=== PATIENT | male | born 1965 | race Caucasian/White ===

== ENCOUNTER 2020-01-09 06:48 | Inpatient (IN) | payer MEDICAID ==
[2020-01-03 12:20] LABS: BASOPHILS % (AUTO) 0.6 % (0-1); EOSINOPHILS # (AUTO) 0.2 X10'3 (0-0.9); EOSINOPHILS % (AUTO) 3.3 % (0-6); LYMPHOCYTES # (AUTO) 1.5 X10'3 (1.1-4.8); LYMPHOCYTES % (AUTO) 27.3 % (21-51); MEAN CORPUSCULAR HGB CONC 33.5 g/dL (33.0-36.5); MEAN CORPUSCULAR VOLUME 95.6 FL (78-98); MEAN PLATELET VOLUME 8.1 FL (7.4-10.4); MONOCYTES # (AUTO) 0.9 X10'3 (0-0.9); MONOCYTES % (AUTO) 15.4 % (2-12); NEUTROPHILS % (AUTO) 53.4 % (42-75); PRE OP HEMATOCRIT 51.7 % (42.0-52.0); PRE OP HEMOGLOBIN 17.3 g/dL (14.0-17.9); PRE OP PLATELET COUNT 158 X10'3 (140-440); RED CELL DISTRIBUTION WIDTH 14.5 % (11.5-14.5)
[2020-01-03 12:41] LABS: ALBUMIN 4.1 G/DL (3.4-5.0); ALBUMIN/GLOBULIN RATIO 1.4 (1.1-1.5); ALKALINE PHOSPHATASE 68 IU/L (46-116); BLOOD UREA NITROGEN 24 MG/DL (7-18); BUN/CREATININE RATIO 14.7 (5.4-32.0); CALCIUM 10.8 MG/DL (8.5-10.1); CHLORIDE 105 MMOL/L (99-107); CREATININE 1.63 MG/DL (0.60-1.10); PRE OP ALT 46 U/L (30-65); PRE OP ANION GAP 7 (8-16); PRE OP AST 35 U/L (10-37); PRE OP BILIRUB, TOTAL 0.5 MG/DL (0.0-1.0); PRE OP GLUCOSE 109 MG/DL (70-104); PRE OP POTASSIUM 3.7 MMOL/L (3.4-5.1); PRE OP SODIUM 142 MMOL/L (135-145); TOTAL CARBON DIOXIDE 29.6 MMOL/L (24-32); TOTAL PROTEIN 7.1 G/DL (6.4-8.2); eGFR 44 ML/MIN
[2020-01-03 13:18] LABS: TOTAL CELLS COUNTED 100
[2020-01-03 13:19] LABS: PLATELET ESTIMATE NORMAL
[~2020-01-09] VITALS: Ht 172.7 cm; Wt 115.8 kg
[2020-01-09] VITALS (27 sets, daily range): BP systolic 111–172; BP diastolic 68–119
[~2020-01-09 06:48] MED LIST: ADAL1PEN SQ; BUPR8TAB4 SL; CARV6.253 PO; CYCL5TAB PO; DOCUMENT DATE & TIME OF BETA-BLOCKER PO ONE; FENO134C PO; FLO0.4C PO; GABA-530 PO; LOSA1TAB39 PO; SIMV10TA98 PO; TEST200V10 IM; TRIA15CR61 TOP; ceFAZolin 2gm in dextrose, iso 50 ML IV ONE; famotidine 20mg tablet PO ONE; ringers solution, lacted 1,000 ML IV SCH; tranexamic acid inj. 1,200 MG in normal saline 100ml IV soln 100 ML IV ONE; vancomycin 1,500 MG in NS 300ml IV soln IV ONE
[2020-01-09] MEDS ORDERED: ROPIVAcaine 0.5% (5mg/ml) 30ml vial ONE ×2 (10:07→10:31)
[2020-01-09] MEDS ORDERED: fentaNYL/PF 50MCG/1 ML 2ML syringe ONE ×2 (10:28→11:41)
[2020-01-09] MEDS ORDERED: MIDAZolam 5mg/5ml vial ONE (10:28)
[2020-01-09] MEDS ORDERED: propofol inj 20 ML IV ONE (10:30)
[2020-01-09] MEDS ORDERED: sevoflurane 250ml liquid IH ONE (10:31)
[2020-01-09] MEDS ORDERED: acetaminophen 1,000mg/100ml IV 100 ML IV ONE (11:53)
[2020-01-09] MEDS ORDERED: ROPIVAcaine 0.2%/PF PUMP/bolus 550 ML INTERSCALE SCH (12:50)
[2020-01-09] MEDS ORDERED: ringers solution, lacted 1,000 ML IV SCH (12:50)
[2020-01-09] MEDS ORDERED: ondansetron/PF 4mg/2ml inj IV PRN ×2 (12:50→12:55)
[2020-01-09] MEDS ORDERED: meperidine/PF 25mg/ml syringe IV PRN ×2 (12:50)
[2020-01-09] MEDS ORDERED: morphine 4 MG/ML inj SYRINge IV PRN (12:50)
[2020-01-09] MEDS ORDERED: morphine 2 MG/ML inj. syringe IV PRN (12:50)
[2020-01-09] MEDS ORDERED: proCHLORperazine 10 MG/2 ml inj IV PRN (12:50)
[2020-01-09] MEDS ORDERED: oxyCODONE IR 5mg (immed. release) tablet PO PRN (12:55)
[2020-01-09] MEDS ORDERED: acetaminophen 325mg tablet PO PRN (12:55)
[2020-01-09] MEDS ORDERED: magnesium hydroxide 30ml (MOM) UD suspension PO PRN (12:55)
[2020-01-09] MEDS ORDERED: HYDROmorphone 1 mg/ml syringe IV PRN (12:55)
[2020-01-09] MEDS ORDERED: diphenhydrAMINE 25mg capsule PO PRN (12:55)
[2020-01-09] MEDS ORDERED: bisacodyl 10mg suppository rectal RC PRN (12:55)
[2020-01-09] MEDS ORDERED: HYDROmorphone inj. 0.5 MG/0.5 ML DISP.SYRIN IV PRN (12:55)
[2020-01-09] MEDS: gabapentin 100mg capsule PO SCH ×2 (13:00→20:41)
[2020-01-09] MEDS: BUPRENORPHINE HCL 8 MG SL SCH ×2 (13:00→21:00)
--- NOTE | 2020-01-09 13:14 | NUR ---
RECEIVED FROM [facility] VIA BED WITH OHTF ACCOMPANIED BY ANESTHESIOLOGIST DR VERMA, REPORT GIVEN. PT SCREAMING AND COMBATIVE AND ATTEMPTING TO GET OUT OF BED. REQUIRED 3-4 NURSES TO RESTRAIN AND PREVENT HIM FROM HARMING HIMSELF. DEMEROL 25 MG, MORPHINE 4 MG, AND VERSED 2 MG REQUESTED BY ANESTHESIA WHICH WAS PULLED AND GIVEN. PT KICKING, CURSING AND SWINGING AT STAFF. PT GRABBED MY RIGHT HAND AND SQUEEZED AND TWISTED IT. 18 GAUGE PIV L HAND PATENT AND RUNNING LR AT 100 ML/HR, PROTECTED BY COBAN PT TRYING TO PULL IT OUT.R SHOULDER DRSG CDI COMPRISED OF [place] DRESSING, SHOULDER WRAP, SLING AND POWDER PACK. PT REFUSING TO KEEP O2 ON. GATICA, SKIN PINK AND WARM, BRISK CAP REFILL, PPULSES PALPABLE.
[2020-01-09] MEDS ORDERED: MIDAZolam 5mg/ml 2ml vial IV ONE (13:25)
[2020-01-09] MEDS ORDERED: midazolam 2 mg/2 ml injection ONE (13:26)
[2020-01-09] MEDS: meperidine/PF 25mg/ml syringe IV PRN ×2 (13:35→14:09)
[2020-01-09] MEDS: acetaminophen 325mg tablet PO SCH ×2 (14:00→20:41)
[2020-01-09] MEDS: ROPIVAcaine 0.2% (10 MG/5 ML) BOLUS INJECTION INTERSCALE PRN (15:24)
--- NOTE | 2020-01-09 15:35 | NUR ---
received report from yesenia velasquez in recovery
--- NOTE | 2020-01-09 15:44 | NUR ---
TRANSFERRED VIA BED WITH OHTF ACCOMPANIED BY 2 RNS, BED RAILS UP, REPORT GIVEN. 18 GAUGE PIV L HAND PATENT AND RUNNING LR AT 100 ML/HR, PROTECTED BY COBAN PT TRYING TO PULL IT OUT.R SHOULDER DRSG CDI COMPRISED OF [place] DRESSING, SHOULDER WRAP, SLING AND POWDER PACK. PT REFUSING TO KEEP O2 ON. GATICA, SKIN PINK AND WARM, BRISK CAP REFILL, PPULSES PALPABLE. LEFT IN CARE OF MANAS HURT
[2020-01-09] MEDS: oxyCODONE IR 5mg (immed. release) tablet PO PRN ×2 (15:53→20:41)
[2020-01-09] MEDS ORDERED: tranexamic acid inj. 1,200 MG in normal saline 100ml IV soln 100 ML IV ONE (16:00)
[2020-01-09] MEDS: ceFAZolin/D5W- 1GM premix 50 ML IV SCH (16:02)
[2020-01-09] MEDS: potassium cl 20mEq in 1/2 NS 1,000 ML IV SCH (18:04)
--- NOTE | 2020-01-09 18:05 | NUR ---
Patient in room ORTHO 4016. I have received report from LICHA Fontana and had the opportunity to ask questions and assume patient care.
--- NOTE | 2020-01-09 18:13 | NUR ---
gave report to yesenia davis
[2020-01-09] MEDS ORDERED: vancomycin/NS 1 GM ADD-VANTAGE 250 ML IV SCH (20:00)
[2020-01-09] MEDS: carvedilol 6.25mg tablet PO SCH (20:41)
[2020-01-09] MEDS: atorvastatin 10mg tablet PO SCH (20:42)
[2020-01-09] MEDS: sennosides 8.6mg tablet PO SCH (20:43)
[2020-01-09] MEDS: cyclobenzaprine 10mg tablet PO SCH (20:43)
[2020-01-09] MEDS: diphenhydrAMINE 25mg capsule PO PRN (21:09)
[2020-01-10] MEDS: oxyCODONE IR 5mg (immed. release) tablet PO PRN ×6 (00:35→21:19)
[2020-01-10] MEDS: ceFAZolin/D5W- 1GM premix 50 ML IV SCH (00:35)
[2020-01-10] MEDS: potassium cl 20mEq in 1/2 NS 1,000 ML IV SCH ×4 (00:39→20:55)
[2020-01-10 02:00] VITALS: BP 141/83
[2020-01-10] MEDS: acetaminophen 325mg tablet PO SCH ×4 (02:41→21:19)
[2020-01-10 06:00] VITALS: BP 158/77
--- NOTE | 2020-01-10 06:08 | NUR ---
Problems reprioritized. Patient report given, questions answered & plan of care reviewed with LICHA Fontana.
--- NOTE | 2020-01-10 06:10 | NUR ---
received report from yesenia davis
[2020-01-10 06:46] LABS: BASOPHILS % (AUTO) 0.4 % (0-1); EOSINOPHILS # (AUTO) 0.1 X10'3 (0-0.9); EOSINOPHILS % (AUTO) 1.1 % (0-6); HEMATOCRIT 41.5 % (42.0-52.0); HEMOGLOBIN 14.1 g/dl (14.0-17.9); LYMPHOCYTES # (AUTO) 1.2 X10'3 (1.1-4.8); LYMPHOCYTES % (AUTO) 15.6 % (21-51); MEAN CORPUSCULAR HEMOGLOBIN 32.3 PG (27.0-31.0); MEAN CORPUSCULAR HGB CONC 33.8 g/dL (33.0-36.5); MEAN CORPUSCULAR VOLUME 95.5 FL (78-98); MEAN PLATELET VOLUME 7.9 FL (7.4-10.4); NEUTROPHILS # (AUTO) 5.6 X10'3 (1.8-7.7); NEUTROPHILS % (AUTO) 69.9 % (42-75); PLATELET COUNT 161 X10'3 (140-440); RED BLOOD COUNT 4.35 X10'6 (4.70-6.10); RED CELL DISTRIBUTION WIDTH 14.2 % (11.5-14.5)
[2020-01-10 07:07] LABS: ANION GAP 5 (8-16); CHLORIDE 106 MMOL/L (99-107); SODIUM 135 MMOL/L (135-145); TOTAL CARBON DIOXIDE 24.3 MMOL/L (24-32)
[2020-01-10 07:11] LABS: POTASSIUM 6.8 MMOL/L (3.5-5.1)
[2020-01-10 07:41] LABS: LARGE PLATELETS FEW; PLATELET ESTIMATE NORMAL
[2020-01-10] MEDS: BUPRENORPHINE HCL 8 MG SL SCH ×3 (08:00→21:00)
[2020-01-10] MEDS: HYDROchlorothiazide 25mg tablet PO SCH (08:13)
[2020-01-10] MEDS: carvedilol 6.25mg tablet PO SCH ×2 (08:13→21:20)
[2020-01-10] MEDS: losartan 50mg tablet PO SCH (08:13)
[2020-01-10] MEDS: cyclobenzaprine 10mg tablet PO SCH ×3 (08:14→21:20)
[2020-01-10] MEDS: tamsulosin 0.4mg capsule PO SCH (08:14)
[2020-01-10] MEDS: gabapentin 100mg capsule PO SCH ×3 (08:14→21:20)
[2020-01-10] MEDS: fenofibrate 145mg tablet PO SCH (08:14)
[2020-01-10] MEDS: aspirin 325mg tablet PO SCH (08:15)
[2020-01-10 10:00] VITALS: BP 144/68
--- NOTE | 2020-01-10 13:30 | NUR ---
Joint replacement Consult: Pt PO 100% avg regular diet meeting needs s/p Violette NICHOLS. LBM 01/08. No nutrition concerns at this time. To f/u 01/13 for initial assessment. Addendum: 01/10/20 at [address] Amended: Links added.
[2020-01-10 14:00] VITALS: BP 121/67
--- NOTE | 2020-01-10 14:20 | NUR ---
scanner on computer not scanning meds into [employer], checked all meds prior admin
[2020-01-10 18:00] VITALS: BP 137/80
--- NOTE | 2020-01-10 18:05 | NUR ---
gave report to yesenia rogers
[2020-01-10] MEDS: atorvastatin 10mg tablet PO SCH (21:20)
[2020-01-10] MEDS: sennosides 8.6mg tablet PO SCH (21:20)
[2020-01-10 22:00] VITALS: BP 139/81
[2020-01-10] MEDS: diphenhydrAMINE 25mg capsule PO PRN (22:43)
[2020-01-11] MEDS: acetaminophen 325mg tablet PO SCH ×2 (00:58→09:32)
[2020-01-11] MEDS: oxyCODONE IR 5mg (immed. release) tablet PO PRN ×3 (00:59→09:33)
[2020-01-11] MEDS: potassium cl 20mEq in 1/2 NS 1,000 ML IV SCH (04:55)
[2020-01-11] MEDS: ROPIVAcaine 0.2% (10 MG/5 ML) BOLUS INJECTION INTERSCALE PRN (05:13)
[2020-01-11 06:00] VITALS: BP 144/80
[2020-01-11 06:28] LABS: BASOPHILS % (AUTO) 0.3 % (0-1); EOSINOPHILS # (AUTO) 0.2 X10'3 (0-0.9); EOSINOPHILS % (AUTO) 1.9 % (0-6); HEMATOCRIT 45.5 % (42.0-52.0); HEMOGLOBIN 15.2 g/dl (14.0-17.9); LYMPHOCYTES # (AUTO) 1.4 X10'3 (1.1-4.8); LYMPHOCYTES % (AUTO) 15.9 % (21-51); MEAN CORPUSCULAR HEMOGLOBIN 31.7 PG (27.0-31.0); MEAN CORPUSCULAR HGB CONC 33.3 g/dL (33.0-36.5); MEAN CORPUSCULAR VOLUME 95.3 FL (78-98); MONOCYTES # (AUTO) 1.1 X10'3 (0-0.9); NEUTROPHILS % (AUTO) 68.9 % (42-75); PLATELET COUNT 169 X10'3 (140-440); RED BLOOD COUNT 4.78 X10'6 (4.70-6.10); RED CELL DISTRIBUTION WIDTH 14.6 % (11.5-14.5); WHITE BLOOD COUNT 8.6 X10'3 (4.5-11.0)
--- NOTE | 2020-01-11 06:42 | NUR ---
reported to days. anticipate pt discharge home today. new OnQ pump joe.
[2020-01-11 08:06] LABS: TOTAL CELLS COUNTED 100
[2020-01-11 08:07] LABS: PLATELET ESTIMATE NORMAL
[2020-01-11] MEDS ORDERED: ASPI-1 PO (09:10)
[2020-01-11] MEDS ORDERED: OXYC10SY PO (09:10)
[2020-01-11] MEDS: losartan 50mg tablet PO SCH (09:31)
[2020-01-11] MEDS: HYDROchlorothiazide 25mg tablet PO SCH (09:31)
[2020-01-11] MEDS: aspirin 325mg tablet PO SCH (09:31)
[2020-01-11] MEDS: fenofibrate 145mg tablet PO SCH (09:32)
[2020-01-11] MEDS: gabapentin 100mg capsule PO SCH ×2 (09:32→13:17)
[2020-01-11] MEDS: tamsulosin 0.4mg capsule PO SCH (09:32)
[2020-01-11] MEDS: carvedilol 6.25mg tablet PO SCH (09:32)
[2020-01-11] MEDS: cyclobenzaprine 10mg tablet PO SCH (09:33)
[2020-01-11] MEDS ORDERED: OXYC-150 PO (09:41)
[2020-01-11 10:00] VITALS: BP 141/78
[2020-01-11] MEDS ORDERED: acetaminophen 325mg tablet PO PRN (12:55)
== END 2020-01-11 13:20 | disposition home or self-care (01) | DRG 315 ==
LOC: UNDOADMIN 06:48 → PAS IN 06:48 → EDSTATUS 10:00 → PAS IN 12:54 → ORTHO 4S 15:44 → PAS IN 15:44
PROVIDERS: ADMIT Orthopaedic Surgery; ATTEND Orthopaedic Surgery
PROC: 0LS30ZZ Reposition Right Upper Arm Tendon, Open Approach (ICD-10-PCS; 2020-01-09)
PROC: 0RRJ00Z Replacement of Right Shoulder Joint with Reverse Ball and Socket Synthetic Substitute, Open Approach (ICD-10-PCS; principal; 2020-01-09 10:31)
DX: M19.011 Primary osteoarthritis, right shoulder (principal); M75.101 Unspecified rotator cuff tear or rupture of right shoulder, not specified as traumatic; E78.5 Hyperlipidemia, unspecified; M89.311 Hypertrophy of bone, right shoulder; I10 Essential (primary) hypertension; Z20.828 Contact with and (suspected) exposure to other viral communicable diseases; Z79.899 Other long term (current) drug therapy
CPT/HCPCS: 36415; 80051; 80053; 82948; 84132; 85007; 85008; 85025; 87081; 87635; 97110; 97116; 97161; 97530; A4565; A4618; A7000; C1776; G0378; J0131; J0690; J1170; J2175; J2250; J2270; J2704; J2795; J3010; J3370; J3480; J7040; J7120; Q0163

== ENCOUNTER 2022-08-04 08:55 | Inpatient (IN) | payer MEDICAID ==
[2022-07-30 14:50] LABS: BASOPHILS % (AUTO) 0.3 % (0-1); EOSINOPHILS # (AUTO) 0.3 X10'3 (0-0.9); LYMPHOCYTES % (AUTO) 10.6 % (21-51); MEAN CORPUSCULAR HEMOGLOBIN 31.7 PG (27.0-31.0); MEAN CORPUSCULAR HGB CONC 33.3 g/dL (33.0-36.5); MEAN CORPUSCULAR VOLUME 95.2 FL (78-98); MEAN PLATELET VOLUME 7.1 FL (7.4-10.4); MONOCYTES # (AUTO) 0.8 X10'3 (0-0.9); MONOCYTES % (AUTO) 8.8 % (2-12); NEUTROPHILS # (AUTO) 7.4 X10'3 (1.8-7.7); NEUTROPHILS % (AUTO) 77.3 % (42-75); PRE OP HEMATOCRIT 48.8 % (42.0-52.0); PRE OP HEMOGLOBIN 16.3 g/dL (14.0-17.9); PRE OP PLATELET COUNT 143 X10'3 (140-440); RED BLOOD COUNT 5.13 X10'6 (4.70-6.10); RED CELL DISTRIBUTION WIDTH 16.2 % (11.5-14.5)
[2022-07-30 15:00] LABS: ALBUMIN 3.6 G/DL (3.4-5.0); ALBUMIN/GLOBULIN RATIO 1.3 (1.1-1.5); ALKALINE PHOSPHATASE 85 IU/L (46-116); BLOOD UREA NITROGEN 11 MG/DL (7-18); BUN/CREATININE RATIO 14.7 (10.0-20.0); CALCIUM 9.6 MG/DL (8.5-10.1); CHLORIDE 108 MMOL/L (99-107); CREATININE 0.75 MG/DL (0.60-1.10); PRE OP ALT 25 U/L (30-65); PRE OP ANION GAP 8 (8-16); PRE OP AST 14 U/L (10-37); PRE OP BILIRUB, TOTAL 0.4 MG/DL (0.0-1.0); PRE OP GLUCOSE 99 MG/DL (70-104); PRE OP POTASSIUM 3.7 MMOL/L (3.4-5.1); PRE OP SODIUM 142 MMOL/L (135-145); TOTAL CARBON DIOXIDE 26.3 MMOL/L (24-32); TOTAL PROTEIN 6.3 G/DL (6.4-8.2); eGFR > 90 ML/MIN
[~2022-08-04] VITALS: Ht 172.7 cm; Wt 102.0 kg
[2022-08-04] VITALS (21 sets, daily range): BP systolic 71–136; BP diastolic 54–91
[~2022-08-04 08:55] MED LIST changes: +ACET-2006 PO; -ADAL1PEN SQ; +ARMO250T4 PO; -BUPR8TAB4 SL; +CELE-193 PO; +CLON-527 PO; -CYCL5TAB PO; -FENO134C PO; +FLUO20CA39 PO; -GABA-530 PO; -LOSA1TAB39 PO; +OMEG-5 PO; +SAW450CA7 PO; -TEST200V10 IM; +TEST200V33 IM; +TURM500C4 PO; -ceFAZolin 2gm in dextrose, iso 50 ML IV ONE; +cefazolin 2gm/D5W 100mL 100 ML IV ONE; +tranexamic acid 650mg tablet PO ONE; -tranexamic acid inj. 1,200 MG in normal saline 100ml IV soln 100 ML IV ONE
[2022-08-04] MEDS ORDERED: fentaNYL/PF 50MCG/1 ML 2ML syringe ONE (12:16)
[2022-08-04] MEDS ORDERED: MIDAZolam 1 MG/ML 5ML VIAL ONE (12:17)
[2022-08-04] MEDS ORDERED: propofol inj 20 ML IV ONE (12:17)
[2022-08-04] MEDS ORDERED: sevoflurane 250ml liquid IH ONE (12:19)
[2022-08-04] MEDS ORDERED: rocuronium 10mg/ml inj IV ONE (12:19)
[2022-08-04] MEDS ORDERED: ketorolac trometh. 30mg/ml inj. ONE (13:23)
[2022-08-04] MEDS ORDERED: ROPIVAcaine 0.5% (5mg/ml) 30ml vial ONE ×2 (13:23→13:42)
[2022-08-04] MEDS ORDERED: ringers solution, lacted 1,000 ML IV SCH (13:40)
[2022-08-04] MEDS ORDERED: morphine 2 MG/ML inj. syringe IV PRN (13:40)
[2022-08-04] MEDS ORDERED: meperidine/PF 25mg/ml syringe IV PRN ×3 (13:40)
[2022-08-04] MEDS ORDERED: morphine 4 MG/ML inj SYRINge IV PRN (13:40)
[2022-08-04] MEDS ORDERED: proCHLORperazine 10 MG/2 ml inj IV PRN (13:40)
[2022-08-04] MEDS ORDERED: ondansetron/PF 4mg/2ml inj IV PRN ×2 (13:40→14:25)
[2022-08-04] MEDS ORDERED: ePHEDrine 50MG/ML INJ. ONE (13:42)
[2022-08-04] MEDS ORDERED: ketorolac trometh. 30mg/ml inj. IV ONE (13:47)
[2022-08-04] MEDS ORDERED: ROPIVAcaine 0.5% (5mg/ml) 30ml vial IJ ONE (13:47)
--- NOTE | 2022-08-04 14:15 | NUR ---
PT ARRIVED TO VIA BED ACCOMPANIED BY DR. VERMA-ANESTHESIA REPORT GIVEN, VSS, DENIES PAIN, RIGHT SHOULDER WRAP WITH POWDER PACK IN PLACE-DRSG CDI, ARM IN SLING, PULSES PRESENT, 18G PIV TO LEFT HAND, SCDS ON, PT WAKING UP-A BIT OF THRASHING HE IS WAKING UP BUT KEEPING PT SAFE-ABLE TO REORIENT.
[2022-08-04] MEDS ORDERED: magnesium hydroxide 30ml (MOM) UD suspension PO PRN (14:25)
[2022-08-04] MEDS ORDERED: diphenhydrAMINE 25mg capsule PO PRN ×2 (14:25)
[2022-08-04] MEDS ORDERED: HYDROmorphone 1 mg/ml syringe IV PRN (14:25)
[2022-08-04] MEDS ORDERED: naloxone 0.4 mg/ml inj IV PRN (14:25)
[2022-08-04] MEDS ORDERED: acetaminophen 325mg tablet PO PRN (14:25)
[2022-08-04] MEDS ORDERED: HYDROcodone/acetaminophen 10/325mg tab PO PRN ×2 (14:25)
[2022-08-04] MEDS ORDERED: clonazePAM 1mg tablet PO PRN (14:25)
[2022-08-04] MEDS ORDERED: bisacodyl 10mg suppository rectal RC PRN (14:25)
[2022-08-04] MEDS ORDERED: HYDROmorphone inj. 0.5 MG/0.5 ML DISP.SYRIN IV PRN (14:25)
[2022-08-04] MEDS: ROPIVAcaine 0.2%/PF PUMP/bolus 545 ML INTERSCALE SCH (14:37)
[2022-08-04] MEDS: ROPIVAcaine 0.2% (10 MG/5 ML) BOLUS INJECTION INTERSCALE PRN (14:37)
--- NOTE | 2022-08-04 15:50 | NUR ---
PT DOING WELL, VSS, DENIES PAIN, NO CHANGES IN ASSESSMENT, WAITING FOR A ROOM ASSIGNMENT.
--- NOTE | 2022-08-04 16:35 | NUR ---
PT ASSESSMENT UNCHANGED, DRSG-CDI, CSM INTACT, PULSES PRESENT, DENIES PAIN, VSS, TOLERATING WATER, RESTING QUIETLY, REPORT CALLED TO LAINEY SCHAEFER-ALL QUESTIONS ANSWERED, PT TAKEN WITH ALL BELONGINGS TO ROOM 4011B, BED LOW AND LOCKED, CALL LIGHT IN REACH, NURSE IN TO RECEIVE PT.
--- NOTE | 2022-08-04 16:38 | NUR ---
Pt escorted to room 4011B, VSS, alert, oriented, and stable. Dressing CDI, pt has no c/o pain at this time. Pt thoroughly educated on On-Q pump, call light system, and call light system. New cold pack placed, pt also educated on benefit of ice therapy. Post-op vitals initiated.
[2022-08-04] MEDS: potassium cl 20mEq in 1/2 NS 1,000 ML IV SCH ×2 (16:48→20:44)
[2022-08-04] MEDS: ceFAZolin/D5W- 1GM premix 50 ML IV SCH ×2 (17:01→23:52)
--- NOTE | 2022-08-04 18:00 | NUR ---
I have reviewed and agree with interventions, assessments, and documentation by Dominique Mae LVN.
--- NOTE | 2022-08-04 18:20 | NUR ---
Problems reprioritized. Patient report given, questions answered & plan of care reviewed with Mj SCHAEFER.
[2022-08-04] MEDS: FLUoxetine 20mg capsule PO SCH (19:28)
[2022-08-04] MEDS: celeCOXIB 100mg capsule PO SCH (19:29)
[2022-08-04] MEDS: oxyCODONE IR 5mg (immed. release) tablet PO PRN ×2 (19:30→23:52)
[2022-08-04] MEDS ORDERED: vancomycin/NS 1 GM ADD-VANTAGE 250 ML IV SCH (20:00)
[2022-08-04] MEDS: carvedilol 6.25mg tablet PO SCH (20:45)
[2022-08-04] MEDS: acetaminophen 325mg tablet PO SCH (20:45)
[2022-08-04] MEDS: sennosides 8.6mg tablet PO SCH (20:45)
[2022-08-04] MEDS: triamcinolone acetonide 0.5% cream 15gm TP SCH (20:46)
[2022-08-04] MEDS: atorvastatin 10mg tablet PO SCH (20:46)
[2022-08-04 21:44] LABS: APPEARANCE,SYNOVIAL FLUID CLOUDY; COLOR,SYNOVIAL FLUID OTHER; SYN WBC 138 /CU MM (0-200)
[2022-08-04 21:48] LABS: LYMPHOCYTES,SYNOVIAL FLUID 70 % (0-75); MONOCYTES,SYNOVIAL FLUID 23 % (0-0); NEUTROPHILS,SYNOVIAL FLUID 7 % (0-25); SYN RBC 9500 /CU MM (0)
[2022-08-05] MEDS: acetaminophen 325mg tablet PO SCH ×4 (02:00→20:22)
[2022-08-05 02:16] VITALS: BP 144/68
--- NOTE | 2022-08-05 04:24 | NUR ---
ROAD TESTER documentation: I have reviewed and agree with assessment performed and documented by ROSEMARY Goldman
[2022-08-05] MEDS: oxyCODONE IR 5mg (immed. release) tablet PO PRN ×4 (05:40→19:11)
[2022-08-05 06:00] VITALS: BP 135/86
--- NOTE | 2022-08-05 06:28 | NUR ---
Problems reprioritized. Patient report given, questions answered & plan of care reviewed with Dominique SCHAEFER.
--- NOTE | 2022-08-05 06:36 | NUR ---
Patient in room ORTHO 4011. I have received report from Mj SCHAEFER and had the opportunity to ask questions and assume patient care.
[2022-08-05 06:38] LABS: BASOPHILS % (AUTO) 0.4 % (0-1); EOSINOPHILS # (AUTO) 0.2 X10'3 (0-0.9); EOSINOPHILS % (AUTO) 2.4 % (0-6); HEMATOCRIT 44.7 % (42.0-52.0); HEMOGLOBIN 14.9 g/dl (14.0-17.9); LYMPHOCYTES # (AUTO) 1.2 X10'3 (1.1-4.8); LYMPHOCYTES % (AUTO) 13.6 % (21-51); MEAN CORPUSCULAR HEMOGLOBIN 32.1 PG (27.0-31.0); MEAN CORPUSCULAR HGB CONC 33.3 g/dL (33.0-36.5); MEAN CORPUSCULAR VOLUME 96.2 FL (78-98); MEAN PLATELET VOLUME 7.1 FL (7.4-10.4); MONOCYTES # (AUTO) 0.8 X10'3 (0-0.9); MONOCYTES % (AUTO) 8.9 % (2-12); NEUTROPHILS # (AUTO) 6.4 X10'3 (1.8-7.7); NEUTROPHILS % (AUTO) 74.7 % (42-75); PLATELET COUNT 145 X10'3 (140-440); RED BLOOD COUNT 4.64 X10'6 (4.70-6.10); RED CELL DISTRIBUTION WIDTH 16.3 % (11.5-14.5); WHITE BLOOD COUNT 8.6 X10'3 (4.5-11.0)
[2022-08-05 06:39] LABS: ANION GAP 7 (8-16); CHLORIDE 107 MMOL/L (99-107); SODIUM 141 MMOL/L (135-145)
[2022-08-05] MEDS: armodafinil 50mg tablet PO SCH (08:00)
[2022-08-05] MEDS ORDERED: SAW PALMETTO PO SCH (08:00)
[2022-08-05] MEDS: triamcinolone acetonide 0.5% cream 15gm TP SCH ×2 (08:00→20:22)
[2022-08-05] MEDS ORDERED: non-formulary drug (Turmeric/Turmeric Root Extract (Turmeric 500 mg Capsule) 1 CAP) PO SCH (08:00)
[2022-08-05] MEDS: potassium cl 20mEq in 1/2 NS 1,000 ML IV SCH ×3 (08:30→22:25)
[2022-08-05] MEDS: OMEGA-3/DHA/EPA/FISH OIL 1 EACH CAPSULE.DR PO SCH (08:30)
[2022-08-05] MEDS: celeCOXIB 100mg capsule PO SCH ×2 (08:30→20:20)
[2022-08-05] MEDS: carvedilol 6.25mg tablet PO SCH ×2 (08:30→20:21)
[2022-08-05] MEDS: aspirin 325mg tablet PO SCH (08:30)
[2022-08-05] MEDS: FLUoxetine 20mg capsule PO SCH ×2 (08:31→20:20)
[2022-08-05 10:00] VITALS: BP 143/62
[2022-08-05 10:07] LABS: TOTAL CELLS COUNTED 100
[2022-08-05 10:08] LABS: ANISOCYTOSIS 1+; ELLIPTOCYTES FEW; PLATELET ESTIMATE NORMAL
--- NOTE | 2022-08-05 12:00 | NUR ---
I have reviewed and agree with interventions, assessments, and documentation by Dominique Mae LVN.
--- NOTE | 2022-08-05 13:00 | NUR ---
Joint surgery consult: Pt s/p R shoulder surgery this admit per EMR. Pt seen by ELENA for written/verbal high protein diet ed w/ RD contact information provided. ELENA encouraged pt to contact dietitian's office if further nutrition questions/concerns. Addendum: 08/05/22 at [address] Amended: Links added.
[2022-08-05 18:00] VITALS: BP 144/86
[2022-08-05] MEDS: sennosides 8.6mg tablet PO SCH (20:20)
[2022-08-05] MEDS: atorvastatin 10mg tablet PO SCH (20:22)
[2022-08-05 22:00] VITALS: BP 167/77
[2022-08-06] MEDS: oxyCODONE IR 5mg (immed. release) tablet PO PRN ×4 (02:14→21:24)
[2022-08-06] MEDS: acetaminophen 325mg tablet PO SCH ×3 (02:14→15:12)
[2022-08-06 06:00] VITALS: BP 163/86
[2022-08-06 06:19] LABS: BASOPHILS % (AUTO) 0.6 % (0-1); EOSINOPHILS # (AUTO) 0.2 X10'3 (0-0.9); EOSINOPHILS % (AUTO) 2.7 % (0-6); HEMATOCRIT 45.5 % (42.0-52.0); HEMOGLOBIN 15.4 g/dl (14.0-17.9); LYMPHOCYTES # (AUTO) 1.2 X10'3 (1.1-4.8); LYMPHOCYTES % (AUTO) 15.3 % (21-51); MEAN CORPUSCULAR HEMOGLOBIN 32.4 PG (27.0-31.0); MEAN CORPUSCULAR HGB CONC 33.9 g/dL (33.0-36.5); MEAN CORPUSCULAR VOLUME 95.6 FL (78-98); MEAN PLATELET VOLUME 7.3 FL (7.4-10.4); MONOCYTES # (AUTO) 0.8 X10'3 (0-0.9); MONOCYTES % (AUTO) 10.5 % (2-12); NEUTROPHILS # (AUTO) 5.4 X10'3 (1.8-7.7); NEUTROPHILS % (AUTO) 70.9 % (42-75); PLATELET COUNT 153 X10'3 (140-440); RED BLOOD COUNT 4.76 X10'6 (4.70-6.10); RED CELL DISTRIBUTION WIDTH 16.2 % (11.5-14.5); WHITE BLOOD COUNT 7.6 X10'3 (4.5-11.0)
[2022-08-06] MEDS: potassium cl 20mEq in 1/2 NS 1,000 ML IV SCH (06:25)
--- NOTE | 2022-08-06 06:30 | NUR ---
Patient in room ORTHO 4011. I have received report from Vianey Wagner RN and had the opportunity to ask questions and assume patient care.
--- NOTE | 2022-08-06 06:43 | NUR ---
Report given to Ileana SCHAEFER, patient sleeping comfortably at this time. No new concerns or changes at this time.
[2022-08-06 06:52] LABS: TOTAL CELLS COUNTED 100
[2022-08-06 06:53] LABS: ANISOCYTOSIS 1+; PLATELET ESTIMATE NORMAL
[2022-08-06] MEDS: armodafinil 50mg tablet PO SCH (08:00)
[2022-08-06] MEDS: FLUoxetine 20mg capsule PO SCH ×2 (09:19→20:12)
[2022-08-06] MEDS: celeCOXIB 100mg capsule PO SCH ×2 (09:19→20:12)
[2022-08-06] MEDS: carvedilol 6.25mg tablet PO SCH ×2 (09:19→20:11)
[2022-08-06] MEDS: OMEGA-3/DHA/EPA/FISH OIL 1 EACH CAPSULE.DR PO SCH (09:20)
[2022-08-06] MEDS: triamcinolone acetonide 0.5% cream 15gm TP SCH ×2 (09:20→20:15)
[2022-08-06] MEDS: aspirin 325mg tablet PO SCH (09:20)
[2022-08-06 10:00] VITALS: BP 165/82
[2022-08-06] MEDS: ROPIVAcaine 0.2%/PF PUMP/bolus 545 ML INTERSCALE SCH (13:40)
[2022-08-06] MEDS ORDERED: acetaminophen 325mg tablet PO PRN (14:25)
[2022-08-06] MEDS: ROPIVAcaine 0.2% (10 MG/5 ML) BOLUS INJECTION INTERSCALE PRN (15:13)
--- NOTE | 2022-08-06 17:00 | NUR ---
I have reviewed and agree with interventions, assessments, and documentation by Ileana Kimbrough LVN.
[2022-08-06 18:00] VITALS: BP 154/85
--- NOTE | 2022-08-06 18:21 | NUR ---
Problems reprioritized. Patient report given, questions answered & plan of care reviewed with Mariella SCHAEFER.
--- NOTE | 2022-08-06 18:39 | NUR ---
Patient in room ORTHO 4011. I have received report from OLIVE Jones and had the opportunity to ask questions and assume patient care.
--- NOTE | 2022-08-06 20:03 | NUR ---
mot here during medication assessment time.
[2022-08-06] MEDS: sennosides 8.6mg tablet PO SCH (20:12)
[2022-08-06] MEDS: atorvastatin 10mg tablet PO SCH (20:13)
[2022-08-06] MEDS: tamsulosin 0.4mg capsule PO PRN (21:24)
[2022-08-06 22:00] VITALS: BP 165/90
--- NOTE | 2022-08-07 01:09 | NUR ---
Agree with physical assessment done by Lucy SCHAEFER.
[2022-08-07 06:00] VITALS: BP 176/84
--- NOTE | 2022-08-07 06:15 | NUR ---
Patient in room ORTHO 4011. I have received report from Lucy SCHAEFER and had the opportunity to ask questions and assume patient care.
--- NOTE | 2022-08-07 06:18 | NUR ---
Problems reprioritized. Patient report given, questions answered & plan of care reviewed with OLIVE Andre.
[2022-08-07 06:19] LABS: BASOPHILS % (AUTO) 0.6 % (0-1); EOSINOPHILS # (AUTO) 0.3 X10'3 (0-0.9); EOSINOPHILS % (AUTO) 3.5 % (0-6); HEMATOCRIT 47.5 % (42.0-52.0); HEMOGLOBIN 16.1 g/dl (14.0-17.9); LYMPHOCYTES % (AUTO) 12.3 % (21-51); MEAN CORPUSCULAR HEMOGLOBIN 32.3 PG (27.0-31.0); MEAN CORPUSCULAR HGB CONC 33.9 g/dL (33.0-36.5); MEAN CORPUSCULAR VOLUME 95.2 FL (78-98); MEAN PLATELET VOLUME 6.8 FL (7.4-10.4); MONOCYTES # (AUTO) 0.8 X10'3 (0-0.9); MONOCYTES % (AUTO) 10.5 % (2-12); NEUTROPHILS # (AUTO) 5.7 X10'3 (1.8-7.7); NEUTROPHILS % (AUTO) 73.1 % (42-75); PLATELET COUNT 154 X10'3 (140-440); RED BLOOD COUNT 4.99 X10'6 (4.70-6.10); RED CELL DISTRIBUTION WIDTH 15.9 % (11.5-14.5); WHITE BLOOD COUNT 7.8 X10'3 (4.5-11.0)
[2022-08-07] MEDS: armodafinil 50mg tablet PO SCH (07:47)
[2022-08-07] MEDS: FLUoxetine 20mg capsule PO SCH ×2 (07:49→21:01)
[2022-08-07] MEDS: oxyCODONE IR 5mg (immed. release) tablet PO PRN ×3 (07:49→21:01)
[2022-08-07] MEDS: OMEGA-3/DHA/EPA/FISH OIL 1 EACH CAPSULE.DR PO SCH (07:49)
[2022-08-07] MEDS: celeCOXIB 100mg capsule PO SCH ×2 (07:49→21:01)
[2022-08-07] MEDS: carvedilol 6.25mg tablet PO SCH ×2 (07:49→21:02)
[2022-08-07] MEDS: aspirin 325mg tablet PO SCH (07:49)
[2022-08-07] MEDS: tamsulosin 0.4mg capsule PO PRN ×2 (07:51→21:07)
[2022-08-07] MEDS: triamcinolone acetonide 0.5% cream 15gm TP SCH ×2 (08:00→21:02)
[2022-08-07 10:00] VITALS: BP 140/60
--- NOTE | 2022-08-07 16:00 | NUR ---
NUTRITIONIST documentation: I have reviewed and agree with all interventions, assessments performed and documented by Ileana Ortiz LVN.
--- NOTE | 2022-08-07 18:05 | NUR ---
Problems reprioritized. Patient report given, questions answered & plan of care reviewed with Lydia HURT.
--- NOTE | 2022-08-07 19:18 | NUR ---
Patient in room ORTHO 4011. I have received report from Ileana SCHAEFER and had the opportunity to ask questions and assume patient care.
[2022-08-07 19:26] VITALS: BP 196/99
--- NOTE | 2022-08-07 20:30 | NUR ---
Pt refused senokot stating " I have started to have loose stools"
[2022-08-07] MEDS: sennosides 8.6mg tablet PO SCH (20:59)
[2022-08-07] MEDS: atorvastatin 10mg tablet PO SCH (20:59)
[2022-08-07] MEDS: ROPIVAcaine 0.2%/PF PUMP/bolus 545 ML INTERSCALE SCH (22:19)
[2022-08-07 23:58] VITALS: BP 163/89
[2022-08-08 06:00] VITALS: BP 144/72
--- NOTE | 2022-08-08 06:47 | NUR ---
Patient in room ORTHO 4011. I have received report from LICHA Mccall and had the opportunity to ask questions and assume patient care.
[2022-08-08] MEDS: oxyCODONE IR 5mg (immed. release) tablet PO PRN (08:51)
[2022-08-08] MEDS: FLUoxetine 20mg capsule PO SCH (09:26)
[2022-08-08] MEDS: carvedilol 6.25mg tablet PO SCH (09:26)
[2022-08-08] MEDS: OMEGA-3/DHA/EPA/FISH OIL 1 EACH CAPSULE.DR PO SCH (09:26)
[2022-08-08] MEDS: celeCOXIB 100mg capsule PO SCH (09:26)
[2022-08-08] MEDS: tamsulosin 0.4mg capsule PO PRN (09:27)
[2022-08-08] MEDS: aspirin 325mg tablet PO SCH (09:27)
[2022-08-08] MEDS: triamcinolone acetonide 0.5% cream 15gm TP SCH (09:27)
[2022-08-08] MEDS: armodafinil 50mg tablet PO SCH (09:27)
[2022-08-08 10:00] VITALS: BP 119/80
--- NOTE | 2022-08-08 13:44 | NUR ---
Patient was discharged going to [facility]. Patient had no IV. Report was called to receiving facility. Patient is stable and appropriate for transfer.
== END 2022-08-08 13:25 | DRG 322 ==
LOC: PAS IN 08:55 → ORTHO 4S 16:30
PROVIDERS: ADMIT Orthopaedic Surgery; ATTEND Orthopaedic Surgery
PROC: 0RRJ00Z Replacement of Right Shoulder Joint with Reverse Ball and Socket Synthetic Substitute, Open Approach (ICD-10-PCS; 2022-08-04)
PROC: 0RPJ0JZ Removal of Synthetic Substitute from Right Shoulder Joint, Open Approach (ICD-10-PCS; principal; 2022-08-04 12:19)
DX: T84.028A Dislocation of other internal joint prosthesis, initial encounter (principal); T84.068A Wear of articular bearing surface of other internal prosthetic joint, initial encounter; Z60.2 Problems related to living alone; M25.362 Other instability, left knee; Y79.2 Prosthetic and other implants, materials and accessory orthopedic devices associated with adverse incidents; Y92.89 Other specified places as the place of occurrence of the external cause
CPT/HCPCS: 36415; 80051; 80053; 85007; 85025; 87015; 87070; 87075; 87081; 89051; 97110; 97116; 97161; 97530; A4565; A4615; A4618; A7000; C1713; C1776; G0378; J0690; J1885; J2250; J2704; J2795; J3010; J3370; J3480; J3490; J7120

== ENCOUNTER 2023-08-21 12:00 | Inpatient (IN) | payer MEDICAID ==
[2023-08-18 13:40] LABS: BASOPHILS % (AUTO) 0.4 % (0-1); EOSINOPHILS # (AUTO) 0.2 X10'3 (0-0.9); LYMPHOCYTES # (AUTO) 1.2 X10'3 (1.1-4.8); LYMPHOCYTES % (AUTO) 15.3 % (21-51); MEAN CORPUSCULAR HEMOGLOBIN 32.7 PG (27.0-31.0); MEAN CORPUSCULAR HGB CONC 33.8 g/dL (33.0-36.5); MEAN CORPUSCULAR VOLUME 96.6 FL (78-98); MEAN PLATELET VOLUME 7.9 FL (7.4-10.4); MONOCYTES # (AUTO) 0.8 X10'3 (0-0.9); MONOCYTES % (AUTO) 9.8 % (2-12); NEUTROPHILS # (AUTO) 5.5 X10'3 (1.8-7.7); NEUTROPHILS % (AUTO) 71.5 % (42-75); PRE OP HEMATOCRIT 53.9 % (42.0-52.0); PRE OP PLATELET COUNT 130 X10'3 (140-440); PRE OP WHITE BLOOD COUNT 7.7 10'3 (4.8-10.8); RED BLOOD COUNT 5.58 X10'6 (4.70-6.10); RED CELL DISTRIBUTION WIDTH 15.5 % (11.5-14.5)
[2023-08-18 13:45] LABS: PRE OP HEMOGLOBIN 18.2 g/dL (14.0-17.9)
[2023-08-18 13:55] LABS: ALBUMIN 3.9 G/DL (3.4-5.0); ALBUMIN/GLOBULIN RATIO 1.2 (1.1-1.5); ALKALINE PHOSPHATASE 94 IU/L (46-116); BLOOD UREA NITROGEN 22 MG/DL (7-18); BUN/CREATININE RATIO 19.1 (10.0-20.0); CALCIUM 9.7 MG/DL (8.5-10.1); CHLORIDE 107 MMOL/L (99-107); CREATININE 1.15 MG/DL (0.60-1.10); PRE OP ALT 29 U/L (30-65); PRE OP ANION GAP 9 (8-16); PRE OP AST 13 U/L (10-37); PRE OP BILIRUB, TOTAL 0.8 MG/DL (0.0-1.0); PRE OP GLUCOSE 125 MG/DL (70-104); PRE OP POTASSIUM 4.1 MMOL/L (3.4-5.1); PRE OP SODIUM 142 MMOL/L (135-145); TOTAL CARBON DIOXIDE 26.2 MMOL/L (24-32); TOTAL PROTEIN 7.2 G/DL (6.4-8.2); eGFR 65 ML/MIN
[~2023-08-21] VITALS: Ht 172.7 cm; Wt 104.1 kg
[~2023-08-21 12:00] MED LIST changes: -ACET-2006 PO; -ARMO250T4 PO; -CLON-527 PO; -DOCUMENT DATE & TIME OF BETA-BLOCKER PO ONE; -FLUO20CA39 PO; +ROSU40TA71 PO; -SAW450CA7 PO; -SIMV10TA98 PO; +TRAZ-251 PO; -TURM500C4 PO; -cefazolin 2gm/D5W 100mL 100 ML IV ONE; -famotidine 20mg tablet PO ONE; -ringers solution, lacted 1,000 ML IV SCH; -tranexamic acid 650mg tablet PO ONE; -vancomycin 1,500 MG in NS 300ml IV soln IV ONE
[2023-08-27] MEDS ORDERED: [UNRECOGNIZED DRUG - CODE] PO (11:52)
[2023-08-28] VITALS (33 sets, daily range): BP systolic 109–152; BP diastolic 58–86; PULSE 61–76; RESP 14–26; TEMP 97.3–98.2; O2SAT 88–98
[2023-08-28] MEDS: DOCUMENT DATE & TIME OF BETA-BLOCKER PO ONE (05:30)
[2023-08-28] MEDS: famotidine 20mg tablet PO ONE (06:27)
[2023-08-28] MEDS: tranexamic acid 650mg tablet PO ONE (06:28)
[2023-08-28] MEDS: vancomycin/NS 1 GM in NS 250 ML IV ONE (06:29)
[2023-08-28] MEDS: ringers solution, lacted 1,000 ML IV SCH ×2 (06:29→08:20)
[2023-08-28] MEDS: cefazolin 2gm/D5W 100mL 100 ML IV ONE (06:30)
[2023-08-28] MEDS: cloNIDine hcl/PF 100mcg/ml inj ONE (07:21)
[2023-08-28] MEDS ORDERED: fentaNYL/PF 50MCG/1 ML 2ML syringe ONE (07:46)
[2023-08-28] MEDS ORDERED: midazolam 1 mg/ML 2ml injection ONE (07:46)
[2023-08-28] MEDS ORDERED: hydrALAZINE 20mg/ml inj. IV PRN (08:20)
[2023-08-28] MEDS ORDERED: meperidine/PF 25mg/ml syringe IV PRN (08:20)
[2023-08-28] MEDS ORDERED: proCHLORperazine 10 MG/2 ml inj IV PRN (08:20)
[2023-08-28] MEDS ORDERED: HYDROmorphone/PF 0.2 MG/ML SYRINGE IV PRN ×2 (08:20)
[2023-08-28] MEDS ORDERED: morphine 4 MG/ML inj SYRINge IV PRN (08:20)
[2023-08-28] MEDS ORDERED: ondansetron/PF 4mg/2ml inj IV PRN ×2 (08:20→11:40)
[2023-08-28] MEDS ORDERED: morphine 2 MG/ML inj. syringe IV PRN (08:20)
[2023-08-28] MEDS: acetaminophen 1,000mg/100ml IV 100 ML IV ONE (08:20)
[2023-08-28] MEDS ORDERED: labetalol 20mg/4ml (5mg/ml) syringe IV PRN (08:20)
[2023-08-28] MEDS: ketorolac trometh. 30mg/ml inj. ONE (08:21)
[2023-08-28] MEDS: ROPIVAcaine 0.5% (5mg/ml) 30ml vial ONE (08:23)
[2023-08-28] MEDS ORDERED: vancomycin 1,000mg inj ONE (09:58)
[2023-08-28] MEDS ORDERED: ROPIVAcaine 0.5% (5mg/ml) 30ml vial ONE (09:58)
[2023-08-28] MEDS ORDERED: propofol inj 20 ML IV ONE (09:58)
[2023-08-28] MEDS ORDERED: rocuronium 10mg/ml inj IV ONE (09:59)
[2023-08-28] MEDS ORDERED: dexamethasone sod phosphate 4mg/ml inj. ONE (09:59)
[2023-08-28] MEDS ORDERED: LIDOcaine 1%/PF 5ML 10 MG/ML VIAL ONE (09:59)
[2023-08-28] MEDS ORDERED: ondansetron/PF 4mg/2ml inj ONE (09:59)
[2023-08-28] MEDS ORDERED: LIDOcaine 2% (20mg/ml) 5ml vial ONE (09:59)
[2023-08-28] MEDS ORDERED: 0.9 % SODIUM CHLORIDE 10 ML VIAL ONE (10:01)
[2023-08-28] MEDS ORDERED: ePHEDrine 50MG/ML INJ. ONE (10:01)
[2023-08-28] MEDS ORDERED: diphenhydrAMINE 25mg capsule PO PRN ×2 (11:40)
[2023-08-28] MEDS ORDERED: bisacodyl 10mg suppository rectal RC PRN (11:40)
[2023-08-28] MEDS ORDERED: ARMODAFINIL 200 MG PO PRN (11:40)
[2023-08-28] MEDS: ROPIVAcaine 0.2%/PF PUMP/bolus 545 ML INTERSCALE SCH (11:57)
[2023-08-28] MEDS: potassium cl 20mEq in 1/2 NS 1,000 ML IV SCH (17:19)
[2023-08-28] MEDS: acetaminophen 325mg tablet PO SCH (17:20)
[2023-08-28] MEDS: ceFAZolin/D5W- 1GM premix 50 ML IV SCH (17:20)
[2023-08-28] MEDS: oxyCODONE IR 5mg (immed. release) tablet PO PRN (19:57)
[2023-08-28] MEDS: sennosides 8.6mg tablet PO SCH (21:35)
[2023-08-28] MEDS: celeCOXIB 100mg capsule PO SCH (21:35)
[2023-08-28] MEDS: vancomycin/NS 1 GM ADD-VANTAGE 250 ML IV SCH (21:35)
[2023-08-28] MEDS: carvedilol 6.25mg tablet PO SCH (21:36)
[2023-08-28] MEDS: tamsulosin 0.4mg capsule PO SCH (21:40)
[2023-08-28] MEDS: OMEGA-3/DHA/EPA/FISH OIL 1 EACH CAPSULE.DR PO SCH (21:40)
[2023-08-29 02:00] VITALS: BP 150/92; PULSE 78; RESP 18; TEMP 97.2; O2SAT 95
[2023-08-29] MEDS: oxyCODONE IR 5mg (immed. release) tablet PO PRN (05:40)
[2023-08-29 06:00] VITALS: BP 117/69; PULSE 65; RESP 16; TEMP 96.5; O2SAT 95
[2023-08-29 07:02] VITALS: RESP 16; O2SAT 95
[2023-08-29 07:15] LABS: BASOPHILS % (AUTO) 0.4 % (0-1); EOSINOPHILS % (AUTO) 0.2 % (0-6); HEMATOCRIT 45.1 % (42.0-52.0); LYMPHOCYTES # (AUTO) 1.1 X10'3 (1.1-4.8); MEAN CORPUSCULAR HEMOGLOBIN 31.9 PG (27.0-31.0); MEAN CORPUSCULAR HGB CONC 33.2 g/dL (33.0-36.5); MONOCYTES # (AUTO) 1.1 X10'3 (0-0.9); MONOCYTES % (AUTO) 9.4 % (2-12); NEUTROPHILS # (AUTO) 9.7 X10'3 (1.8-7.7); PLATELET COUNT 141 X10'3 (140-440); RED CELL DISTRIBUTION WIDTH 15.4 % (11.5-14.5)
[2023-08-29 07:18] LABS: ANION GAP 6 (8-16); CHLORIDE 107 MMOL/L (99-107); POTASSIUM 4.2 MMOL/L (3.5-5.1); SODIUM 139 MMOL/L (135-145); TOTAL CARBON DIOXIDE 26.1 MMOL/L (24-32)
[2023-08-29] MEDS ORDERED: celeCOXIB 100mg capsule PO SCH ×2 (08:00→20:00)
[2023-08-29] MEDS: aspirin 325mg tablet PO SCH (08:42)
[2023-08-29] MEDS: TESTOSTERONE CYPIONATE 200 MG/ML VIAL IM SCH (09:35)
[2023-08-29 10:28] VITALS: BP 128/74; PULSE 71; RESP 16; TEMP 97.9; O2SAT 93
[2023-08-29] MEDS ORDERED: TESTOSTERONE CYPIONATE 200 MG/ML VIAL IM SCH (14:36)
[2023-08-29] MEDS: HYDROmorphone inj. 0.5 MG/0.5 ML DISP.SYRIN IV PRN (16:03)
[2023-08-29 18:00] VITALS: BP 119/65; PULSE 66; RESP 18; TEMP 97.6; O2SAT 94
[2023-08-29] MEDS: traZODone 50mg tablet PO PRN (21:54)
[2023-08-29 22:00] VITALS: BP 134/79; PULSE 69; RESP 18; TEMP 97.7; O2SAT 92
[2023-08-30] MEDS: HYDROmorphone 1 mg/ml syringe IV PRN (00:56)
[2023-08-30 06:00] VITALS: BP 113/71; PULSE 72; RESP 18; TEMP 98.5; O2SAT 91
[2023-08-30 07:09] LABS: BASOPHILS % (AUTO) 0.3 % (0-1); EOSINOPHILS # (AUTO) 0.1 X10'3 (0-0.9); EOSINOPHILS % (AUTO) 1.7 % (0-6); HEMATOCRIT 44.5 % (42.0-52.0); HEMOGLOBIN 14.9 g/dl (14.0-17.9); LYMPHOCYTES % (AUTO) 11.9 % (21-51); MEAN CORPUSCULAR HEMOGLOBIN 32.3 PG (27.0-31.0); MEAN CORPUSCULAR HGB CONC 33.4 g/dL (33.0-36.5); MEAN CORPUSCULAR VOLUME 96.6 FL (78-98); MEAN PLATELET VOLUME 7.7 FL (7.4-10.4); MONOCYTES # (AUTO) 0.9 X10'3 (0-0.9); MONOCYTES % (AUTO) 10.8 % (2-12); NEUTROPHILS # (AUTO) 6.3 X10'3 (1.8-7.7); NEUTROPHILS % (AUTO) 75.3 % (42-75); PLATELET COUNT 113 X10'3 (140-440); RED BLOOD COUNT 4.61 X10'6 (4.70-6.10); RED CELL DISTRIBUTION WIDTH 15.8 % (11.5-14.5); WHITE BLOOD COUNT 8.4 X10'3 (4.5-11.0)
[2023-08-30 07:53] VITALS: RESP 18; O2SAT 91
[2023-08-30 10:00] VITALS: BP 134/63; PULSE 71; RESP 18; TEMP 97.1; O2SAT 94
[2023-08-30] MEDS ORDERED: acetaminophen 325mg tablet PO PRN (13:15)
[2023-08-30 18:00] VITALS: BP 155/82; PULSE 67; RESP 18; TEMP 97.8; O2SAT 94
[2023-08-30 19:00] VITALS: RESP 18; O2SAT 94
[2023-08-30] MEDS: acetaminophen 325mg tablet PO PRN (20:05)
[2023-08-30 22:00] VITALS: BP 143/87; PULSE 66; RESP 18; TEMP 98.4; O2SAT 93
[2023-08-31] VITALS (7 sets, daily range): BP systolic 86–163; BP diastolic 69–111; PULSE 62–87; RESP 15–20; TEMP 96.9–98.5; O2SAT 93–98
[2023-08-31 06:01] LABS: BASOPHILS % (AUTO) 0.5 % (0-1); EOSINOPHILS # (AUTO) 0.2 X10'3 (0-0.9); EOSINOPHILS % (AUTO) 2.1 % (0-6); HEMATOCRIT 45.5 % (42.0-52.0); HEMOGLOBIN 15.6 g/dl (14.0-17.9); MEAN CORPUSCULAR HEMOGLOBIN 33.2 PG (27.0-31.0); MEAN CORPUSCULAR HGB CONC 34.3 g/dL (33.0-36.5); MEAN CORPUSCULAR VOLUME 96.6 FL (78-98); NEUTROPHILS # (AUTO) 6.7 X10'3 (1.8-7.7); NEUTROPHILS % (AUTO) 75.4 % (42-75); PLATELET COUNT 119 X10'3 (140-440); RED CELL DISTRIBUTION WIDTH 16.1 % (11.5-14.5); WHITE BLOOD COUNT 8.9 X10'3 (4.5-11.0)
[2023-08-31 07:29] LABS: GIANT PLATELET FEW; LARGE PLATELETS FEW; PLATELET ESTIMATE DECREASED; TOTAL CELLS COUNTED 100
[2023-08-31 07:30] LABS: ANISOCYTOSIS 1+
[2023-08-31] MEDS: TESTOSTERONE CYPIONATE 200 MG/ML VIAL IM SCH (14:00)
[2023-08-31] MEDS: ROPIVAcaine 0.2% (10 MG/5 ML) BOLUS INJECTION INTERSCALE PRN (15:27)
[2023-09-01 07:00] VITALS: BP 133/82; PULSE 69; RESP 18; TEMP 96.1; O2SAT 96
[2023-09-01] MEDS: magnesium hydroxide 30ml (MOM) UD suspension PO PRN (07:40)
[2023-09-01 11:00] VITALS: BP 135/81; PULSE 57; RESP 18; TEMP 96.1; O2SAT 94
[2023-09-01] MEDS: oxyCODONE IR 5mg (immed. release) tablet PO PRN (14:13)
[2023-09-01 18:00] VITALS: BP 149/93; PULSE 60; RESP 16; TEMP 97.9; O2SAT 94
[2023-09-01 22:00] VITALS: BP 135/69; PULSE 69; RESP 18; TEMP 97.3; O2SAT 93
[2023-09-02 02:00] VITALS: BP 101/54; PULSE 97; RESP 16; TEMP 98.7; O2SAT 94
[2023-09-02 06:00] VITALS: BP_SYST 116; BP_SYST 126; BP_DIAS 44; BP_DIAS 59; PULSE 66; PULSE 69; RESP 16; TEMP 97.6; TEMP 98.3; O2SAT 94; O2SAT 97
[2023-09-02 08:20] VITALS: RESP 18; O2SAT 94
[2023-09-02 10:00] VITALS: BP_SYST 128; BP_SYST 99; BP_DIAS 42; BP_DIAS 59; PULSE 71; PULSE 72; RESP 16; TEMP 96.4; TEMP 98; O2SAT 94; O2SAT 96
[2023-09-02 13:43] VITALS: RESP 18
== END 2023-09-02 14:00 | DRG 322 ==
LOC: PAS IN 08-28 05:31 → ORTHO 4S 08-28 14:50
PROVIDERS: ADMIT Orthopaedic Surgery; ATTEND Orthopaedic Surgery
PROC: 0LS40ZZ Reposition Left Upper Arm Tendon, Open Approach (ICD-10-PCS; 2023-08-28)
PROC: 0RRK00Z Replacement of Left Shoulder Joint with Reverse Ball and Socket Synthetic Substitute, Open Approach (ICD-10-PCS; principal; 2023-08-28 08:59)
DX: M19.012 Primary osteoarthritis, left shoulder (principal); M75.122 Complete rotator cuff tear or rupture of left shoulder, not specified as traumatic; M75.22 Bicipital tendinitis, left shoulder
CPT/HCPCS: 36415; 80051; 80053; 82948; 85007; 85025; 87081; 97110; 97116; 97161; 97530; A4215; A4615; A4618; A6258; A7000; C1776; G0378; J0690; J0735; J1100; J1170; J1885; J2250; J2405; J2704; J2795; J3010; J3370; J3480; J3490; J7120; Z7610

== ENCOUNTER 2024-04-12 13:04 | Outpatient (CLI) | payer MEDICAID ==
[~2024-04-12 13:04] MED LIST changes: -ROSU40TA71 PO; +ROSU40TA89 PO; +[UNRECOGNIZED DRUG - CODE] PO
== END 2024-04-12 23:59 | disposition home or self-care (01) ==
LOC: MRI 13:04
PROVIDERS: ATTEND Orthopaedic Surgery
DX: S44.32XA Injury of axillary nerve, left arm, initial encounter (principal); M25.512 Pain in left shoulder; M79.602 Pain in left arm; Z96.612 Presence of left artificial shoulder joint; X58.XXXA Exposure to other specified factors, initial encounter; Y93.89 Activity, other specified; Y92.89 Other specified places as the place of occurrence of the external cause; Y99.8 Other external cause status; M48.03 Spinal stenosis, cervicothoracic region; M47.813 Spondylosis without myelopathy or radiculopathy, cervicothoracic region; M50.33 Other cervical disc degeneration, cervicothoracic region
CPT/HCPCS: 72141; 72142